=== PATIENT | male | born 1960 | race Caucasian/White ===

== ENCOUNTER → 2021-03-18 | Day surgery (SDC) | payer MEDICARE, MEDICAID ==
[~2021-03-18] MED LIST: Lactated Ringers 1,000 ML IV SCH; Propofol 200 MG/20 ML SDV ONE
[2021-03-18 10:41] VITALS: BP 129/86; PULSE 65
--- NOTE | 2021-03-18 12:46 | OR ---
DATE OF OPERATION: 03/18/2021 PREOPERATIVE DIAGNOSIS: HISTORY OF POLYPS. POSTOPERATIVE DIAGNOSIS: HISTORY OF POLYPS. SURGEON: Jorge Martinez MD PROCEDURE: FULL-LENGTH COLONOSCOPY WITH SNARE POLYPECTOMY X3. ANESTHESIA: MAC. COMPLICATIONS: None. SPECIMEN: 1. Two tubular adenomas less than 0.5 cm. 2. Elongated villous lesion approximately 5 mm. FINDINGS: 1. Full-length colonoscopy. 2. Mild sigmoid diverticulosis. 3. Tubular adenomas x2. 4. Sessile polyp 0.5 cm or less. RECOMMENDATIONS: Followup colonoscopy in 5 years. INDICATIONS: Mr. Leigh is a 4th [facility] patient who is in for a routine physical. It has been 5 years since his last colonoscopy, where he had a polyp removed. He is due for a routine followup. DESCRIPTION OF PROCEDURE: The patient is prepped and draped, placed in the left lateral decubitus position. A lubricated Olympus colonoscope was inserted and with ease advanced to the cecum. Direct visualization of the ileocecal valve and appendiceal orifice was very difficult as the patient had significant amount of stool in the right colon. Most of this was unable to be suctioned due to the solidity of it. He had liquid stool throughout the colon as well. Visualization was adequate in most places, but certainly smaller lesions could be missed at some of these areas. Upon withdrawal, the cecum and ascending colon appeared grossly benign. Just past the hepatic flexure in the proximal transverse colon, the patient had an elongated sessile polyp approximately 5 mm, removed with snare and suctioned into polyp trap #1. At the splenic flexure the patient had a second polyp, tubular adenoma in usual size about 4 mm, removed with a snare and suctioned into polyp trap #2. The rest of the transverse and descending areas were benign. The patient does have scattered diverticular disease throughout most of the sigmoid, mild in severity. The last polyp in the proximal sigmoid colon was also tubular in nature, removed with a snare and suctioned into polyp trap #3 without problem. The rectal vault appeared benign. Retroflexion showed no obvious perianal lesions, although a lot of stool was present. Air was suctioned. Scope removed without complication. STEPHANY/ALEXANDRO /[id number]
== END ==
LOC: CC.SDS 08:26
PROVIDERS: ATTEND Family Medicine
DX: Z12.11 Encounter for screening for malignant neoplasm of colon (principal); D12.3 Benign neoplasm of transverse colon; D12.5 Benign neoplasm of sigmoid colon; K57.30 Diverticulosis of large intestine without perforation or abscess without bleeding; K21.9 Gastro-esophageal reflux disease without esophagitis; E78.00 Pure hypercholesterolemia, unspecified; I10 Essential (primary) hypertension; E03.9 Hypothyroidism, unspecified; F31.9 Bipolar disorder, unspecified; F95.2 Tourette's disorder; R97.20 Elevated prostate specific antigen [PSA]; Z79.899 Other long term (current) drug therapy; Z79.890 Hormone replacement therapy
CPT/HCPCS: 45385; J2704; J7120; 00812

== ENCOUNTER 2023-01-11 10:21 | Inpatient (IN) | payer MEDICARE, MEDICAID ==
[2023-01-11] MEDS ORDERED: Sodium Chloride 0.9% 1,000 ML IV ONE (10:42)
[2023-01-11 11:21] LABS: BASOPHILS ABSOLUTE AUTO 0.02 10^3/uL (0.00-0.50); BASOPHILS PERCENT AUTO 0.1 % (0-1); EOSINOPHILS ABSOLUTE AUTO 0.01 10^3/uL (0.00-1.50); HEMATOCRIT 41.9 % (42.0-52.0); HEMOGLOBIN 14.6 g/dL (14.0-18.0); IMMATURE GRAN PERCENT AUTO 0.5 % (0.0-4.9); LYMPHOCYTES ABSOLUTE AUTO 1.45 10^3/uL (0.60-5.00); LYMPHOCYTES PERCENT AUTO 6.8 % (24-44); MEAN CORPUSCULAR HEMOGLOBIN 30.3 pg (27.0-32.0); MEAN CORPUSCULAR HGB CONC 34.8 g/dL (32.0-36.0); MEAN CORPUSCULAR VOLUME 86.9 fL (83.0-97.0); MONOCYTES ABSOLUTE AUTO 3.04 10^3/uL (0.00-1.50); MONOCYTES PERCENT AUTO 14.2 % (0-10); NEUTROPHILS ABSOLUTE AUTO 16.78 x10^3/uL (1.80-8.00); NEUTROPHILS PERCENT AUTO 78.4 % (41-71); PLATELET COUNT,PLT 197 10^3/uL (150-400); RED BLOOD CELL COUNT 4.82 x10^6/uL (4.50-6.00)
[2023-01-11 11:24] LABS: WHITE BLOOD CELL COUNT,WBC 21.4 10^3/uL (4.0-11.0)
[2023-01-11 11:25] LABS: APPEARANCE,URINE CLEAR (CLEAR); BILIRUBIN,URINE NEGATIVE (NEGATIVE); COLOR,URINE YELLOW (YELLOW); GLUCOSE,URINE NEGATIVE (NEGATIVE); KETONES,URINE NEGATIVE (NEGATIVE); LEUKOCYTE ESTERASE,URINE SMALL (NEGATIVE); NITRITE,URINE NEGATIVE (NEGATIVE); OCCULT BLOOD,URINE MODERATE (NEGATIVE); PH,URINE 5.5 (4.5-8.0); PROTEIN,URINE NEGATIVE (NEGATIVE); UROBILINOGEN,URINE 0.2 EU/dL (0.2-1.0)
[2023-01-11 11:34] LABS: ALBUMIN 3.3 g/dL (3.4-5.0); BILIRUBIN TOTAL 0.8 mg/dL (0.0-1.0); C-REACTIVE PROTEIN 8.43 mg/dL (<=0.30); CALCIUM 9.9 mg/dL (8.4-10.1); CREATININE 1.4 mg/dL (0.7-1.3); EST CRCL DRUG DOSING (CG) 59.01 mL/min; POTASSIUM,K 4.5 mEq/L (3.5-5.0)
[2023-01-11 11:36] LABS: LACTIC ACID 1.1 mmol/L (0.4-2.0)
[2023-01-11] MEDS ORDERED: cefTRIAXone 2 GM Vial IVPUSH ONE (11:41)
[2023-01-11 11:44] LABS: BACTERIA,URINE OCCASIONAL /HPF (NOT SEEN); EPITHELIAL CELLS,URINE NOT SEEN /HPF (NOT SEEN); MUCUS,URINE NOT SEEN /HPF (NOT SEEN)
[2023-01-11 12:03] LABS: CORONAVIRUS COVID-19 NAA NEGATIVE (NEGATIVE); INFLUENZA A NAA NEGATIVE (NEGATIVE); INFLUENZA B NAA NEGATIVE (NEGATIVE); RESPIRATORY SYNCYTIAL VIR NAA NEGATIVE (NEGATIVE)
[2023-01-11] MEDS ORDERED: Ondansetron 4 MG/2 ML SDV IV PRN (12:55)
[2023-01-11] MEDS ORDERED: Ondansetron 4 MG Tab.DIS PO PRN (12:55)
[2023-01-11] MEDS: Sodium Chloride 0.9% 1,000 ML IV SCH ×3 (13:11→23:10)
[2023-01-11] MEDS: Acetaminophen 325 MG Tab PO PRN ×2 (13:28→17:30)
[2023-01-11 14:20] LABS: APPEARANCE,URINE SLIGHTLY CLOUDY (CLEAR); BILIRUBIN,URINE NEGATIVE (NEGATIVE); COLOR,URINE YELLOW (YELLOW); GLUCOSE,URINE NEGATIVE (NEGATIVE); KETONES,URINE NEGATIVE (NEGATIVE); LEUKOCYTE ESTERASE,URINE SMALL (NEGATIVE); NITRITE,URINE POSITIVE (NEGATIVE); OCCULT BLOOD,URINE SMALL (NEGATIVE); PROTEIN,URINE TRACE mg/dL (NEGATIVE); UROBILINOGEN,URINE 0.2 EU/dL (0.2-1.0)
[2023-01-11 14:43] LABS: BACTERIA,URINE FEW /HPF (NOT SEEN); EPITHELIAL CELLS,URINE OCCASIONAL /HPF (NOT SEEN); MUCUS,URINE OCCASIONAL /HPF (NOT SEEN); WBC,URINE 40-50 /HPF (0-5)
[2023-01-11] MEDS: LORazepam 0.5 MG Tab PO SCH ×2 (15:11→19:58)
[2023-01-11] MEDS: Ibuprofen 200 MG Tab PO PRN ×2 (15:20→23:27)
[2023-01-11] MEDS: hydrOXYzine HCl 25 MG Tab PO SCH (17:03)
[2023-01-11] MEDS: Levothyroxine 100 MCG Tab PO SCH (17:03)
[2023-01-11] MEDS: Pantoprazole 40 MG Tab.CR PO SCH (17:03)
[2023-01-11] MEDS: Propranolol 80 MG Cap.ER PO SCH (17:03)
[2023-01-11] MEDS: Enoxaparin 40 MG/0.4 ML Syringe SUBCUT SCH (19:57)
[2023-01-11] MEDS: Fluticasone NASAL Spray 16 GM Bottle NASBOTH SCH (19:57)
[2023-01-11] MEDS: Montelukast 10 MG Tab PO SCH (19:57)
[2023-01-11] MEDS: traZODone 50 MG Tab PO SCH (19:58)
[2023-01-11] MEDS: Divalproex Sodium Delayed-Release 250 MG Tab.CR PO SCH (19:58)
[2023-01-11] MEDS: risperiDONE 1 MG Tab PO SCH (19:58)
[2023-01-11] MEDS: OLANZAPINE 20 MG PO SCH (20:03)
[2023-01-12 07:30] LABS: BASOPHILS ABSOLUTE AUTO 0.04 10^3/uL (0.00-0.50); BASOPHILS PERCENT AUTO 0.2 % (0-1); EOSINOPHILS ABSOLUTE AUTO 0.03 10^3/uL (0.00-1.50); EOSINOPHILS PERCENT AUTO 0.1 % (0-6); HEMATOCRIT 31.8 % (42.0-52.0); HEMOGLOBIN 10.9 g/dL (14.0-18.0); IMMATURE GRAN PERCENT AUTO 2.7 % (0.0-4.9); LYMPHOCYTES ABSOLUTE AUTO 1.18 10^3/uL (0.60-5.00); LYMPHOCYTES PERCENT AUTO 5.3 % (24-44); MEAN CORPUSCULAR HEMOGLOBIN 30.4 pg (27.0-32.0); MEAN CORPUSCULAR HGB CONC 34.3 g/dL (32.0-36.0); MEAN CORPUSCULAR VOLUME 88.8 fL (83.0-97.0); MONOCYTES ABSOLUTE AUTO 2.48 10^3/uL (0.00-1.50); MONOCYTES PERCENT AUTO 11.2 % (0-10); NEUTROPHILS PERCENT AUTO 80.5 % (41-71); PLATELET COUNT,PLT 140 10^3/uL (150-400); RED BLOOD CELL COUNT 3.58 x10^6/uL (4.50-6.00)
[2023-01-12] MEDS: risperiDONE 1 MG Tab PO SCH ×2 (07:41→19:44)
[2023-01-12] MEDS: Magnesium Chloride 64 MG Tab.ER PO SCH (07:41)
[2023-01-12] MEDS: Divalproex Sodium Delayed-Release 250 MG Tab.CR PO SCH ×2 (07:41→19:43)
[2023-01-12] MEDS: LORazepam 0.5 MG Tab PO SCH ×3 (07:42→19:42)
[2023-01-12] MEDS: Loratadine 10 MG Tab PO SCH (07:42)
[2023-01-12] MEDS: Multivitamin Tab PO SCH (07:43)
[2023-01-12 07:44] LABS: WHITE BLOOD CELL COUNT,WBC 22.2 10^3/uL (4.0-11.0)
[2023-01-12] MEDS: Furosemide 40 MG Tab PO SCH (07:44)
[2023-01-12] MEDS: Propranolol 80 MG Cap.ER PO SCH ×2 (07:46→18:22)
[2023-01-12] MEDS: Lisinopril 10 MG Tab PO SCH (07:46)
[2023-01-12] MEDS: Polyethylene Glycol 3350 Powder 17 GM Packet PO SCH (07:46)
[2023-01-12] MEDS: hydrOXYzine HCl 25 MG Tab PO SCH ×2 (07:48→18:24)
[2023-01-12 08:11] LABS: ALBUMIN 2.1 g/dL (3.4-5.0); BILIRUBIN TOTAL 0.4 mg/dL (0.0-1.0); C-REACTIVE PROTEIN 18.74 mg/dL (<=0.30); CALCIUM 7.9 mg/dL (8.4-10.1); EST CRCL DRUG DOSING (CG) 27.54 mL/min; POTASSIUM,K 4.7 mEq/L (3.5-5.0); PROTEIN TOTAL,TP 5.7 g/dL (6.4-8.2)
[2023-01-12] MEDS: Sodium Chloride 0.9% 1,000 ML IV SCH ×2 (09:02→21:05)
[2023-01-12] MEDS ORDERED: cefTRIAXone 1 GM Vial IVPUSH SCH (13:15)
[2023-01-12] MEDS: cefTRIAXone 1 GM Vial IVPUSH SCH (13:15)
[2023-01-12] MEDS: Pantoprazole 40 MG Tab.CR PO SCH (18:22)
[2023-01-12] MEDS: Levothyroxine 100 MCG Tab PO SCH (18:22)
[2023-01-12] MEDS: Enoxaparin 40 MG/0.4 ML Syringe SUBCUT SCH (19:44)
[2023-01-12] MEDS: Montelukast 10 MG Tab PO SCH (19:45)
[2023-01-12] MEDS: traZODone 50 MG Tab PO SCH (19:45)
[2023-01-12] MEDS: OLANZAPINE 20 MG PO SCH (19:47)
[2023-01-12] MEDS: Fluticasone NASAL Spray 16 GM Bottle NASBOTH SCH (19:48)
[2023-01-13] MEDS: Acetaminophen 325 MG Tab PO PRN ×3 (03:40→19:46)
[2023-01-13 07:58] LABS: BASOPHILS ABSOLUTE AUTO 0.02 10^3/uL (0.00-0.50); BASOPHILS PERCENT AUTO 0.1 % (0-1); EOSINOPHILS ABSOLUTE AUTO 0.26 10^3/uL (0.00-1.50); EOSINOPHILS PERCENT AUTO 1.5 % (0-6); HEMATOCRIT 34.2 % (42.0-52.0); HEMOGLOBIN 11.7 g/dL (14.0-18.0); IMMATURE GRAN PERCENT AUTO 1.1 % (0.0-4.9); LYMPHOCYTES ABSOLUTE AUTO 1.41 10^3/uL (0.60-5.00); LYMPHOCYTES PERCENT AUTO 8.1 % (24-44); MEAN CORPUSCULAR HEMOGLOBIN 29.8 pg (27.0-32.0); MEAN CORPUSCULAR HGB CONC 34.2 g/dL (32.0-36.0); MEAN CORPUSCULAR VOLUME 87.2 fL (83.0-97.0); MONOCYTES ABSOLUTE AUTO 1.19 10^3/uL (0.00-1.50); MONOCYTES PERCENT AUTO 6.8 % (0-10); NEUTROPHILS PERCENT AUTO 82.4 % (41-71); PLATELET COUNT,PLT 148 10^3/uL (150-400); RED BLOOD CELL COUNT 3.92 x10^6/uL (4.50-6.00); WHITE BLOOD CELL COUNT,WBC 17.5 10^3/uL (4.0-11.0)
[2023-01-13] MEDS: risperiDONE 1 MG Tab PO SCH ×2 (08:00→19:31)
[2023-01-13] MEDS: Furosemide 40 MG Tab PO SCH (08:00)
[2023-01-13] MEDS: Loratadine 10 MG Tab PO SCH (08:01)
[2023-01-13] MEDS: Multivitamin Tab PO SCH (08:01)
[2023-01-13] MEDS: Magnesium Chloride 64 MG Tab.ER PO SCH (08:01)
[2023-01-13] MEDS: Lisinopril 10 MG Tab PO SCH (08:01)
[2023-01-13] MEDS: LORazepam 0.5 MG Tab PO SCH ×3 (08:02→19:29)
[2023-01-13] MEDS: Polyethylene Glycol 3350 Powder 17 GM Packet PO SCH (08:03)
[2023-01-13] MEDS: Divalproex Sodium Delayed-Release 250 MG Tab.CR PO SCH ×2 (08:04→19:30)
[2023-01-13] MEDS: hydrOXYzine HCl 25 MG Tab PO SCH ×2 (08:08→17:04)
[2023-01-13] MEDS: Propranolol 80 MG Cap.ER PO SCH ×2 (08:09→17:05)
[2023-01-13 08:15] LABS: ALBUMIN 2.1 g/dL (3.4-5.0); BILIRUBIN TOTAL 0.4 mg/dL (0.0-1.0); C-REACTIVE PROTEIN 18.87 mg/dL (<=0.30); CALCIUM 8.7 mg/dL (8.4-10.1); CREATININE 1.2 mg/dL (0.7-1.3); EST CRCL DRUG DOSING (CG) 68.85 mL/min; PROTEIN TOTAL,TP 6.3 g/dL (6.4-8.2)
[2023-01-13 08:20] LABS: POTASSIUM,K 4.3 mEq/L (3.5-5.0)
[2023-01-13] MEDS: cefTRIAXone 1 GM Vial IVPUSH SCH (11:49)
[2023-01-13] MEDS: Levothyroxine 100 MCG Tab PO SCH (17:04)
[2023-01-13] MEDS: Pantoprazole 40 MG Tab.CR PO SCH (17:04)
[2023-01-13] MEDS: Enoxaparin 40 MG/0.4 ML Syringe SUBCUT SCH (19:30)
[2023-01-13] MEDS: Montelukast 10 MG Tab PO SCH (19:32)
[2023-01-13] MEDS: traZODone 50 MG Tab PO SCH (19:32)
[2023-01-13] MEDS: Fluticasone NASAL Spray 16 GM Bottle NASBOTH SCH (19:33)
[2023-01-13] MEDS: OLANZAPINE 20 MG PO SCH (19:33)
[2023-01-14 07:53] LABS: BASOPHILS ABSOLUTE AUTO 0.02 10^3/uL (0.00-0.50); BASOPHILS PERCENT AUTO 0.1 % (0-1); EOSINOPHILS ABSOLUTE AUTO 0.35 10^3/uL (0.00-1.50); EOSINOPHILS PERCENT AUTO 2.5 % (0-6); HEMATOCRIT 34.8 % (42.0-52.0); HEMOGLOBIN 11.8 g/dL (14.0-18.0); IMMATURE GRAN ABSOLUTE AUTO 0.28 10^3/uL (0.00-0.49); LYMPHOCYTES ABSOLUTE AUTO 1.63 10^3/uL (0.60-5.00); LYMPHOCYTES PERCENT AUTO 11.8 % (24-44); MEAN CORPUSCULAR HEMOGLOBIN 29.7 pg (27.0-32.0); MEAN CORPUSCULAR HGB CONC 33.9 g/dL (32.0-36.0); MEAN CORPUSCULAR VOLUME 87.7 fL (83.0-97.0); MONOCYTES ABSOLUTE AUTO 0.99 10^3/uL (0.00-1.50); MONOCYTES PERCENT AUTO 7.2 % (0-10); NEUTROPHILS ABSOLUTE AUTO 10.49 x10^3/uL (1.80-8.00); NEUTROPHILS PERCENT AUTO 76.4 % (41-71); PLATELET COUNT,PLT 134 10^3/uL (150-400); RED BLOOD CELL COUNT 3.97 x10^6/uL (4.50-6.00); WHITE BLOOD CELL COUNT,WBC 13.8 10^3/uL (4.0-11.0)
[2023-01-14] MEDS: risperiDONE 1 MG Tab PO SCH (08:04)
[2023-01-14] MEDS: Multivitamin Tab PO SCH (08:04)
[2023-01-14] MEDS: Divalproex Sodium Delayed-Release 250 MG Tab.CR PO SCH (08:05)
[2023-01-14] MEDS: Lisinopril 10 MG Tab PO SCH (08:05)
[2023-01-14] MEDS: Loratadine 10 MG Tab PO SCH (08:05)
[2023-01-14] MEDS: LORazepam 0.5 MG Tab PO SCH (08:05)
[2023-01-14] MEDS: Magnesium Chloride 64 MG Tab.ER PO SCH (08:06)
[2023-01-14] MEDS: Furosemide 40 MG Tab PO SCH (08:06)
[2023-01-14] MEDS: Polyethylene Glycol 3350 Powder 17 GM Packet PO SCH (08:07)
[2023-01-14 08:08] LABS: ALBUMIN 2.1 g/dL (3.4-5.0); BILIRUBIN TOTAL 0.3 mg/dL (0.0-1.0); C-REACTIVE PROTEIN 8.8 mg/dL (<=0.30); CALCIUM 9.1 mg/dL (8.4-10.1); CREATININE 1.1 mg/dL (0.7-1.3); EST CRCL DRUG DOSING (CG) 75.11 mL/min; POTASSIUM,K 4.3 mEq/L (3.5-5.0); PROTEIN TOTAL,TP 6.4 g/dL (6.4-8.2)
[2023-01-14] MEDS: hydrOXYzine HCl 25 MG Tab PO SCH (08:08)
[2023-01-14] MEDS: Propranolol 80 MG Cap.ER PO SCH (08:08)
[2023-01-14] MEDS ORDERED: Take Home: Sulfamethoxazole/Trimethoprim 800-160 MG Tab, 6 Tab Pack PO ONE (10:14)
[2023-01-14 10:33] VITALS: BP 153/98; PULSE 86
== END 2023-01-14 10:50 | disposition home or self-care (01) | DRG 690 ==
LOC: CC.ED 10:21 → UNDOADMIN 12:33 → CC.MS 12:33
PROVIDERS: ADMIT Nurse Practitioner Family; ATTEND Nurse Practitioner Family
DX: N39.0 Urinary tract infection, site not specified (principal); N17.9 Acute kidney failure, unspecified; I95.9 Hypotension, unspecified; B96.89 Other specified bacterial agents as the cause of diseases classified elsewhere; E86.0 Dehydration; Z20.822 Contact with and (suspected) exposure to COVID-19; F79 Unspecified intellectual disabilities; Z79.899 Other long term (current) drug therapy
CPT/HCPCS: 0241U; 36415; 71046; 80053; 81001; 83605; 85025; 86140; 87040; 87086; 87088; 87186; 96361; 96374; 99223; 99232; 99233; 99238; 99285-25; A9270-GY; J0696; J1650; J7030

== ENCOUNTER 2024-09-15 09:32 | Inpatient (IN) | payer MEDICARE, MEDICAID ==
[2024-09-15 09:56] LABS: BASOPHILS ABSOLUTE AUTO 0.02 10^3/uL (0.00-0.50); BASOPHILS PERCENT AUTO 0.1 % (0-1); EOSINOPHILS ABSOLUTE AUTO 0.03 10^3/uL (0.00-1.50); EOSINOPHILS PERCENT AUTO 0.2 % (0-6); HEMATOCRIT 39.2 % (42.0-52.0); IMMATURE GRAN ABSOLUTE AUTO 0.07 10^3/uL (0.00-0.49); IMMATURE GRAN PERCENT AUTO 0.4 % (0.0-4.9); LYMPHOCYTES ABSOLUTE AUTO 2.12 10^3/uL (0.60-5.00); LYMPHOCYTES PERCENT AUTO 12.3 % (24-44); MEAN CORPUSCULAR HEMOGLOBIN 30.6 pg (27.0-32.0); MEAN CORPUSCULAR HGB CONC 33.2 g/dL (32.0-36.0); MEAN CORPUSCULAR VOLUME 92.2 fL (83.0-97.0); MONOCYTES ABSOLUTE AUTO 2.85 10^3/uL (0.00-1.50); MONOCYTES PERCENT AUTO 16.6 % (0-10); NEUTROPHILS PERCENT AUTO 70.4 % (41-71); PLATELET COUNT,PLT 151 10^3/uL (150-400); RED BLOOD CELL COUNT 4.25 x10^6/uL (4.50-6.00); WHITE BLOOD CELL COUNT,WBC 17.2 10^3/uL (4.0-11.0)
[2024-09-15 10:07] LABS: APPEARANCE,URINE CLEAR (CLEAR); BILIRUBIN,URINE NEGATIVE (NEGATIVE); COLOR,URINE YELLOW (YELLOW); GLUCOSE,URINE NEGATIVE (NEGATIVE); KETONES,URINE NEGATIVE (NEGATIVE); LEUKOCYTE ESTERASE,URINE TRACE (NEGATIVE); NITRITE,URINE NEGATIVE (NEGATIVE); OCCULT BLOOD,URINE TRACE-INTACT (NEGATIVE); PROTEIN,URINE NEGATIVE (NEGATIVE)
[2024-09-15 10:12] LABS: ALBUMIN 2.8 g/dL (3.4-5.0); BILIRUBIN TOTAL 0.9 mg/dL (0.0-1.0); C-REACTIVE PROTEIN 7.31 mg/dL (<=0.50); CREATININE 1.3 mg/dL (0.7-1.3); EST CRCL DRUG DOSING (CG) 62.75 mL/min; POTASSIUM,K 4.3 mEq/L (3.5-5.0); PROTEIN TOTAL,TP 7.3 g/dL (6.4-8.2)
[2024-09-15 10:19] LABS: BACTERIA,URINE NOT SEEN /HPF (NOT SEEN); EPITHELIAL CELLS,URINE NOT SEEN /HPF (NOT SEEN); MUCUS,URINE NOT SEEN /HPF (NOT SEEN); RBC,URINE 0-5 /HPF (0-5); WBC,URINE 0-5 /HPF (0-5)
[2024-09-15] MEDS ORDERED: Ondansetron 4 MG Tab.DIS PO PRN (11:40)
[2024-09-15] MEDS ORDERED: Ondansetron 4 MG/2 ML SDV IV PRN (11:40)
[2024-09-15] MEDS ORDERED: Sodium Chloride 0.9% 10 ML Syringe FLUSH PRN (11:40)
[2024-09-15] MEDS ORDERED: Albuterol/Ipratropium 3.0-0.5 MG/3 ML Neb Soln NEB PRN (11:40)
[2024-09-15] MEDS ORDERED: Acetaminophen 325 MG Tab PO PRN (11:40)
[2024-09-15] MEDS: Azithromycin 250 MG Tab PO SCH (11:56)
[2024-09-15] MEDS: cefTRIAXone 1 GM Vial IVPUSH SCH (11:56)
[2024-09-15] MEDS: methylPREDNISolone Sodium Succinate 40 MG/1 ML SDV IVPUSH ONE (11:56)
[2024-09-15] MEDS: LORazepam 0.5 MG Tab PO SCH (14:02)
[2024-09-15] MEDS: Levothyroxine 100 MCG Tab PO SCH (17:18)
[2024-09-15] MEDS: hydrOXYzine HCl 25 MG Tab PO SCH (17:18)
[2024-09-15] MEDS: Divalproex Sodium Delayed-Release 250 MG Tab.CR PO SCH (19:46)
[2024-09-15] MEDS: risperiDONE 1 MG Tab PO SCH (19:47)
[2024-09-15] MEDS: traZODone 50 MG Tab PO SCH (19:47)
[2024-09-15] MEDS: Montelukast 10 MG Tab PO SCH (19:47)
[2024-09-15] MEDS: Propranolol 80 MG Cap.ER PO SCH (19:47)
[2024-09-15] MEDS: Enoxaparin 40 MG/0.4 ML Syringe SUBCUT SCH (19:47)
[2024-09-15] MEDS: methylPREDNISolone Sodium Succinate 40 MG/1 ML SDV IVPUSH SCH (19:47)
[2024-09-15] MEDS: Pantoprazole 40 MG Tab.CR PO SCH (19:47)
[2024-09-15] MEDS: OLANZAPINE 20 MG PO SCH (20:04)
[2024-09-16] MEDS: Magnesium Oxide 400 MG Tab PO SCH (07:41)
[2024-09-16] MEDS: hydrOXYzine HCl 25 MG Tab PO SCH (07:42)
[2024-09-16] MEDS: Furosemide 40 MG Tab PO SCH (07:42)
[2024-09-16] MEDS: Multivitamin Tab PO SCH (07:44)
[2024-09-16] MEDS: Polyethylene Glycol 3350 Powder 17 GM Packet PO SCH (07:45)
[2024-09-16 08:06] LABS: BASOPHILS ABSOLUTE AUTO 0.02 10^3/uL (0.00-0.50); BASOPHILS PERCENT AUTO 0.1 % (0-1); HEMATOCRIT 37.6 % (42.0-52.0); HEMOGLOBIN 12.5 g/dL (14.0-18.0); IMMATURE GRAN ABSOLUTE AUTO 0.09 10^3/uL (0.00-0.49); IMMATURE GRAN PERCENT AUTO 0.5 % (0.0-4.9); LYMPHOCYTES ABSOLUTE AUTO 1.49 10^3/uL (0.60-5.00); LYMPHOCYTES PERCENT AUTO 8.3 % (24-44); MEAN CORPUSCULAR HEMOGLOBIN 30.5 pg (27.0-32.0); MEAN CORPUSCULAR HGB CONC 33.2 g/dL (32.0-36.0); MEAN CORPUSCULAR VOLUME 91.7 fL (83.0-97.0); MONOCYTES ABSOLUTE AUTO 1.08 10^3/uL (0.00-1.50); NEUTROPHILS ABSOLUTE AUTO 15.35 x10^3/uL (1.80-8.00); NEUTROPHILS PERCENT AUTO 85.1 % (41-71); PLATELET COUNT,PLT 174 10^3/uL (150-400)
[2024-09-16 08:24] LABS: ALBUMIN 2.3 g/dL (3.4-5.0); BILIRUBIN TOTAL 0.4 mg/dL (0.0-1.0); C-REACTIVE PROTEIN 7.53 mg/dL (<=0.50); CALCIUM 9.1 mg/dL (8.4-10.1); CREATININE 1.1 mg/dL (0.7-1.3); EST CRCL DRUG DOSING (CG) 74.16 mL/min; POTASSIUM,K 4.5 mEq/L (3.5-5.0); PROTEIN TOTAL,TP 6.9 g/dL (6.4-8.2)
[2024-09-16] MEDS: Lisinopril 10 MG Tab PO SCH (09:09)
[2024-09-17 07:38] LABS: ALBUMIN 2.4 g/dL (3.4-5.0); BILIRUBIN TOTAL 0.3 mg/dL (0.0-1.0); C-REACTIVE PROTEIN 3.47 mg/dL (<=0.50); CALCIUM 9.6 mg/dL (8.4-10.1); CREATININE 1.2 mg/dL (0.7-1.3); EST CRCL DRUG DOSING (CG) 67.98 mL/min; PROTEIN TOTAL,TP 7.1 g/dL (6.4-8.2)
[2024-09-17 07:40] LABS: BASOPHILS ABSOLUTE AUTO 0.03 10^3/uL (0.00-0.50); BASOPHILS PERCENT AUTO 0.2 % (0-1); HEMATOCRIT 39.3 % (42.0-52.0); IMMATURE GRAN ABSOLUTE AUTO 0.14 10^3/uL (0.00-0.49); IMMATURE GRAN PERCENT AUTO 0.7 % (0.0-4.9); LYMPHOCYTES ABSOLUTE AUTO 1.93 10^3/uL (0.60-5.00); LYMPHOCYTES PERCENT AUTO 9.9 % (24-44); MEAN CORPUSCULAR HEMOGLOBIN 30.4 pg (27.0-32.0); MEAN CORPUSCULAR HGB CONC 33.1 g/dL (32.0-36.0); MONOCYTES ABSOLUTE AUTO 1.06 10^3/uL (0.00-1.50); MONOCYTES PERCENT AUTO 5.4 % (0-10); NEUTROPHILS ABSOLUTE AUTO 16.33 x10^3/uL (1.80-8.00); NEUTROPHILS PERCENT AUTO 83.8 % (41-71); PLATELET COUNT,PLT 222 10^3/uL (150-400); RED BLOOD CELL COUNT 4.27 x10^6/uL (4.50-6.00); WHITE BLOOD CELL COUNT,WBC 19.5 10^3/uL (4.0-11.0)
[2024-09-17] MEDS: cefTRIAXone 1 GM Vial IVPUSH SCH (11:02)
[2024-09-17] MEDS: Azithromycin 250 MG Tab PO ONE (11:02)
[2024-09-17 11:20] VITALS: BP 117/78; PULSE 73
== END 2024-09-17 11:30 | disposition home or self-care (01) | DRG 195 ==
LOC: CC.ED 09:32 → CC.MS 10:38
PROVIDERS: ADMIT Physician Assistant Medical; ATTEND Physician Assistant Medical
DX: J18.9 Pneumonia, unspecified organism (principal); J31.0 Chronic rhinitis; I11.0 Hypertensive heart disease with heart failure; I50.9 Heart failure, unspecified; E03.9 Hypothyroidism, unspecified; K21.9 Gastro-esophageal reflux disease without esophagitis; Z86.718 Personal history of other venous thrombosis and embolism; Z79.899 Other long term (current) drug therapy
CPT/HCPCS: 36415; 71045; 80053; 81001; 83880; 85025; 86140; 99223; 99233; 99239; 99285; A9270-GY; J0696; J1650; J2919

== ENCOUNTER 2024-11-24 15:50 | Inpatient (IN) | payer MEDICARE, MEDICAID ==
[2024-11-24] MEDS ORDERED: Albuterol 0.083% 2.5 MG/3 ML Neb Soln NEB PRN (15:53)
[2024-11-24] MEDS ORDERED: Polyethylene Glycol 3350 Powder 17 GM Packet PO PRN (15:53)
[2024-11-24] MEDS ORDERED: Docusate Sodium 100 MG Cap PO PRN (15:53)
[2024-11-24] MEDS: Albuterol/Ipratropium 3.0-0.5 MG/3 ML Neb Soln NEB SCH (16:23)
[2024-11-24] MEDS: cefTRIAXone 1 GM Vial IVPUSH SCH (16:24)
[2024-11-24] MEDS: Doxycycline Monohydrate 100 MG Cap PO ONE (17:38)
[2024-11-24] MEDS: Propranolol 80 MG Cap.ER PO SCH (19:39)
[2024-11-24] MEDS: Montelukast 10 MG Tab PO SCH (19:40)
[2024-11-24] MEDS: Pantoprazole 40 MG Tab.CR PO SCH (19:40)
[2024-11-24] MEDS: traZODone 50 MG Tab PO SCH (19:41)
[2024-11-24] MEDS: Divalproex Sodium 250 MG Tab.ER PO SCH (19:41)
[2024-11-24] MEDS: hydrOXYzine HCl 25 MG Tab PO SCH (19:41)
[2024-11-24] MEDS: LORazepam 0.5 MG Tab PO SCH (19:42)
[2024-11-24] MEDS: risperiDONE 1 MG Tab PO SCH (19:44)
[2024-11-24] MEDS: Fluticasone NASAL Spray 16 GM Bottle NASBOTH SCH (20:20)
[2024-11-25 07:49] LABS: CALCIUM 8.9 mg/dL (8.4-10.1); EST CRCL DRUG DOSING (CG) 81.58 mL/min; MAGNESIUM 1.9 mg/dL (1.8-2.4); POTASSIUM,K 4.1 mEq/L (3.5-5.0)
[2024-11-25 07:58] LABS: BASOPHILS ABSOLUTE AUTO 0.03 10^3/uL (0.00-0.50); BASOPHILS PERCENT AUTO 0.3 % (0-1); EOSINOPHILS ABSOLUTE AUTO 0.19 10^3/uL (0.00-1.50); EOSINOPHILS PERCENT AUTO 1.8 % (0-6); HEMOGLOBIN 12.5 g/dL (14.0-18.0); IMMATURE GRAN ABSOLUTE AUTO 0.02 10^3/uL (0.00-0.49); IMMATURE GRAN PERCENT AUTO 0.2 % (0.0-4.9); LYMPHOCYTES ABSOLUTE AUTO 1.73 10^3/uL (0.60-5.00); MEAN CORPUSCULAR HEMOGLOBIN 30.6 pg (27.0-32.0); MEAN CORPUSCULAR HGB CONC 32.9 g/dL (32.0-36.0); MEAN CORPUSCULAR VOLUME 93.1 fL (83.0-97.0); MONOCYTES ABSOLUTE AUTO 1.14 10^3/uL (0.00-1.50); MONOCYTES PERCENT AUTO 10.5 % (0-10); NEUTROPHILS ABSOLUTE AUTO 7.72 x10^3/uL (1.80-8.00); NEUTROPHILS PERCENT AUTO 71.2 % (41-71); PLATELET COUNT,PLT 164 10^3/uL (150-400); RED BLOOD CELL COUNT 4.08 x10^6/uL (4.50-6.00); WHITE BLOOD CELL COUNT,WBC 10.8 10^3/uL (4.0-11.0)
[2024-11-25] MEDS: Polyethylene Glycol 3350 Powder 238 GM Bot PO SCH (08:14)
[2024-11-25] MEDS: Doxycycline Monohydrate 100 MG Cap PO SCH (08:28)
[2024-11-25] MEDS: Furosemide 20 MG Tab PO SCH (08:28)
[2024-11-25] MEDS: Lisinopril 10 MG Tab PO SCH (08:28)
[2024-11-25] MEDS: Lactobacillus Rhamnosus GG (Probiotic) Cap PO SCH (08:29)
[2024-11-25] MEDS: Acetaminophen 325 MG Tab PO PRN (09:56)
[2024-11-25] MEDS: methylPREDNISolone Sodium Succinate 40 MG/1 ML SDV IVPUSH ONE (13:12)
[2024-11-25] MEDS: Levothyroxine 100 MCG Tab PO SCH (16:36)
[2024-11-25] MEDS: OLANZAPINE 20 MG PO SCH (19:33)
[2024-11-26 07:35] LABS: BASOPHILS ABSOLUTE AUTO 0.03 10^3/uL (0.00-0.50); BASOPHILS PERCENT AUTO 0.2 % (0-1); HEMATOCRIT 36.7 % (42.0-52.0); HEMOGLOBIN 12.3 g/dL (14.0-18.0); IMMATURE GRAN ABSOLUTE AUTO 0.06 10^3/uL (0.00-0.49); IMMATURE GRAN PERCENT AUTO 0.5 % (0.0-4.9); LYMPHOCYTES PERCENT AUTO 15.3 % (24-44); MEAN CORPUSCULAR HEMOGLOBIN 30.8 pg (27.0-32.0); MEAN CORPUSCULAR HGB CONC 33.5 g/dL (32.0-36.0); MEAN CORPUSCULAR VOLUME 91.8 fL (83.0-97.0); MONOCYTES ABSOLUTE AUTO 0.98 10^3/uL (0.00-1.50); MONOCYTES PERCENT AUTO 7.9 % (0-10); NEUTROPHILS ABSOLUTE AUTO 9.42 x10^3/uL (1.80-8.00); NEUTROPHILS PERCENT AUTO 76.1 % (41-71); PLATELET COUNT,PLT 167 10^3/uL (150-400); WHITE BLOOD CELL COUNT,WBC 12.4 10^3/uL (4.0-11.0)
[2024-11-26 07:41] LABS: EST CRCL DRUG DOSING (CG) 81.58 mL/min; MAGNESIUM 1.9 mg/dL (1.8-2.4)
[2024-11-26] MEDS: methylPREDNISolone Sodium Succinate 40 MG/1 ML SDV IVPUSH SCH (07:41)
[2024-11-26] MEDS: Magnesium Oxide 400 MG Tab PO SCH (11:41)
[2024-11-26] MEDS: cefTRIAXone 1 GM Vial IVPUSH ONE (11:41)
[2024-11-26 12:13] VITALS: BP 137/86; PULSE 76
== END 2024-11-26 13:18 | disposition home or self-care (01) | DRG 194 ==
LOC: UNDOADMIN 15:50 → CC.MS 15:50
PROVIDERS: ADMIT Nurse Practitioner; ATTEND Nurse Practitioner
DX: J18.9 Pneumonia, unspecified organism (principal); J44.0 Chronic obstructive pulmonary disease with (acute) lower respiratory infection; J44.1 Chronic obstructive pulmonary disease with (acute) exacerbation; I50.9 Heart failure, unspecified; I11.0 Hypertensive heart disease with heart failure; K21.9 Gastro-esophageal reflux disease without esophagitis; F31.9 Bipolar disorder, unspecified; E03.9 Hypothyroidism, unspecified; Z79.899 Other long term (current) drug therapy; Z79.890 Hormone replacement therapy; Z86.718 Personal history of other venous thrombosis and embolism
CPT/HCPCS: 36415; 80048; 83735; 85025; 87426-QW; 94640; 97161-GP; 99223; 99233; 99238; A9270-GY; J0696; J2919

== ENCOUNTER 2025-04-04 17:30 | Inpatient (IN) | payer MEDICARE, MEDICAID ==
[2025-04-04 18:12] LABS: BASOPHILS ABSOLUTE AUTO 0.02 10^3/uL (0.00-0.50); BASOPHILS PERCENT AUTO 0.1 % (0-1); EOSINOPHILS ABSOLUTE AUTO 0.01 10^3/uL (0.00-1.50); EOSINOPHILS PERCENT AUTO 0.1 % (0-6); IMMATURE GRAN ABSOLUTE AUTO 0.05 10^3/uL (0.00-0.49); IMMATURE GRAN PERCENT AUTO 0.3 % (0.0-4.9); LYMPHOCYTES ABSOLUTE AUTO 1.70 10^3/uL (0.60-5.00); LYMPHOCYTES PERCENT AUTO 9.1 % (24-44); MONOCYTES ABSOLUTE AUTO 2.73 10^3/uL (0.00-1.50); MONOCYTES PERCENT AUTO 14.6 % (0-10); NEUTROPHILS ABSOLUTE AUTO 14.19 x10^3/uL (1.80-8.00); NEUTROPHILS PERCENT AUTO 75.8 % (41-71); PLATELET COUNT,PLT 184 10^3/uL (150-400); RED BLOOD CELL COUNT 4.58 x10^6/uL (4.50-6.00); WHITE BLOOD CELL COUNT,WBC 18.7 10^3/uL (4.0-11.0)
[2025-04-04 18:27] LABS: ALANINE AMINOTRANSFERASE,ALT 23.0 U/L (12-78); ASPARTATE AMNIOTRANSFERASE,AST 12.0 U/L (15-37); BILIRUBIN TOTAL 0.6 mg/dL (0.0-1.0); BLOOD UREA NITROGEN,BUN 16.0 mg/dL (7-18); CARBON DIOXIDE,CO2 32.0 mmol/L (21-32); CHLORIDE,CL 98.0 mEq/L (98-106); CREATININE 1.3 mg/dL (0.7-1.3); EST CRCL DRUG DOSING (CG) 61.95 mL/min; GLUCOSE RANDOM 113.0 mg/dL (75-99); POTASSIUM,K 4.3 mEq/L (3.5-5.0); PROTEIN TOTAL,TP 7.2 g/dL (6.4-8.2); SODIUM,NA 137.0 mEq/L (136-145)
[2025-04-04 18:33] LABS: ESTIMATED GFR 62.0 mL/min (>=60)
[2025-04-04 18:42] LABS: CORONAVIRUS COVID-19 NAA NEGATIVE (NEGATIVE); INFLUENZA A NAA NEGATIVE (NEGATIVE); INFLUENZA B NAA NEGATIVE (NEGATIVE)
[2025-04-04] MEDS ORDERED: Sodium Chloride 0.9% 10 ML Syringe FLUSH PRN (19:01)
[2025-04-04] MEDS ORDERED: Ondansetron 4 MG/2 ML SDV IV PRN (19:01)
[2025-04-04] MEDS ORDERED: Ondansetron 4 MG Tab.DIS PO PRN (19:01)
[2025-04-04] MEDS: Fluticasone NASAL Spray 16 GM Bottle NASBOTH SCH (19:26)
[2025-04-04] MEDS: Propranolol 80 MG Cap.ER PO SCH (19:27)
[2025-04-04] MEDS: Divalproex Sodium Delayed-Release 250 MG Tab.CR PO SCH (19:28)
[2025-04-05 07:41] LABS: BASOPHILS ABSOLUTE AUTO 0.02 10^3/uL (0.00-0.50); BASOPHILS PERCENT AUTO 0.2 % (0-1); EOSINOPHILS ABSOLUTE AUTO 0.04 10^3/uL (0.00-1.50); EOSINOPHILS PERCENT AUTO 0.3 % (0-6); IMMATURE GRAN ABSOLUTE AUTO 0.04 10^3/uL (0.00-0.49); IMMATURE GRAN PERCENT AUTO 0.3 % (0.0-4.9); LYMPHOCYTES ABSOLUTE AUTO 2.24 10^3/uL (0.60-5.00); LYMPHOCYTES PERCENT AUTO 18.4 % (24-44); MONOCYTES ABSOLUTE AUTO 1.04 10^3/uL (0.00-1.50); MONOCYTES PERCENT AUTO 8.6 % (0-10); NEUTROPHILS ABSOLUTE AUTO 8.78 x10^3/uL (1.80-8.00); NEUTROPHILS PERCENT AUTO 72.2 % (41-71); PLATELET COUNT,PLT 136 10^3/uL (150-400); RED BLOOD CELL COUNT 3.82 x10^6/uL (4.50-6.00); WHITE BLOOD CELL COUNT,WBC 12.2 10^3/uL (4.0-11.0)
[2025-04-05 07:52] LABS: APPEARANCE,URINE CLEAR (CLEAR); GLUCOSE,URINE NEGATIVE (NEGATIVE); OCCULT BLOOD,URINE NEGATIVE (NEGATIVE)
[2025-04-05 07:58] LABS: ALANINE AMINOTRANSFERASE,ALT 15.0 U/L (12-78); ASPARTATE AMNIOTRANSFERASE,AST 11.0 U/L (15-37); BILIRUBIN TOTAL 0.6 mg/dL (0.0-1.0); BLOOD UREA NITROGEN,BUN 13.0 mg/dL (7-18); CARBON DIOXIDE,CO2 30.0 mmol/L (21-32); CHLORIDE,CL 105.0 mEq/L (98-106); CREATININE 1.1 mg/dL (0.7-1.3); EST CRCL DRUG DOSING (CG) 73.21 mL/min; GLUCOSE RANDOM 128.0 mg/dL (75-99); POTASSIUM,K 3.7 mEq/L (3.5-5.0); PROTEIN TOTAL,TP 5.8 g/dL (6.4-8.2); SODIUM,NA 141.0 mEq/L (136-145)
[2025-04-05] MEDS ORDERED: Non-Formulary Medication 1 Each (Magnesium Chloride [Mag-64] 64 MG Tab.Er) PO SCH (08:00)
[2025-04-05] MEDS ORDERED: Polyethylene Glycol 3350 Powder 238 GM Bot PO SCH (08:00)
[2025-04-05 08:02] LABS: ESTIMATED GFR 75.0 mL/min (>=60)
[2025-04-05] MEDS: Lactobacillus Rhamnosus GG (Probiotic) Cap PO SCH (09:50)
[2025-04-06 07:25] LABS: BASOPHILS ABSOLUTE AUTO 0.03 10^3/uL (0.00-0.50); BASOPHILS PERCENT AUTO 0.4 % (0-1); EOSINOPHILS ABSOLUTE AUTO 0.08 10^3/uL (0.00-1.50); EOSINOPHILS PERCENT AUTO 1.0 % (0-6); IMMATURE GRAN ABSOLUTE AUTO 0.03 10^3/uL (0.00-0.49); IMMATURE GRAN PERCENT AUTO 0.4 % (0.0-4.9); LYMPHOCYTES ABSOLUTE AUTO 1.79 10^3/uL (0.60-5.00); LYMPHOCYTES PERCENT AUTO 21.3 % (24-44); MONOCYTES ABSOLUTE AUTO 0.75 10^3/uL (0.00-1.50); MONOCYTES PERCENT AUTO 8.9 % (0-10); NEUTROPHILS ABSOLUTE AUTO 5.73 x10^3/uL (1.80-8.00); NEUTROPHILS PERCENT AUTO 68.0 % (41-71); PLATELET COUNT,PLT 145 10^3/uL (150-400); RED BLOOD CELL COUNT 3.89 x10^6/uL (4.50-6.00); WHITE BLOOD CELL COUNT,WBC 8.4 10^3/uL (4.0-11.0)
[2025-04-06 08:11] LABS: ALANINE AMINOTRANSFERASE,ALT 17.0 U/L (12-78); ASPARTATE AMNIOTRANSFERASE,AST 13.0 U/L (15-37); BILIRUBIN TOTAL 0.4 mg/dL (0.0-1.0); BLOOD UREA NITROGEN,BUN 13.0 mg/dL (7-18); CARBON DIOXIDE,CO2 29.0 mmol/L (21-32); CHLORIDE,CL 109.0 mEq/L (98-106); CREATININE 0.9 mg/dL (0.7-1.3); EST CRCL DRUG DOSING (CG) 89.48 mL/min; GLUCOSE RANDOM 79.0 mg/dL (75-99); POTASSIUM,K 4.4 mEq/L (3.5-5.0); PROTEIN TOTAL,TP 5.9 g/dL (6.4-8.2); SODIUM,NA 145.0 mEq/L (136-145)
[2025-04-06 08:13] LABS: ESTIMATED GFR 96.0 mL/min (>=60)
[2025-04-06 10:15] VITALS: BP 145/91; PULSE 68
== END 2025-04-06 10:35 | disposition home or self-care (01) | DRG 871 ==
LOC: CC.ED 17:30 → UNDOADMOB 18:44 → CC.MS 18:44 → CC.ED 18:54 → INTOOBSV 04-05 09:40 → OBSVTOIN 04-05 09:40 → UNDODISIN 04-06 10:35
PROVIDERS: ADMIT Physician Assistant Medical; ATTEND Nurse Practitioner Family
DX: R50.9 Fever, unspecified (principal); A41.9 Sepsis, unspecified organism; J18.9 Pneumonia, unspecified organism; J30.2 Other seasonal allergic rhinitis; D72.829 Elevated white blood cell count, unspecified; I11.0 Hypertensive heart disease with heart failure; I50.9 Heart failure, unspecified; K21.9 Gastro-esophageal reflux disease without esophagitis; F79 Unspecified intellectual disabilities; E03.9 Hypothyroidism, unspecified; Z79.51 Long term (current) use of inhaled steroids; Z79.899 Other long term (current) drug therapy; Z79.890 Hormone replacement therapy
CPT/HCPCS: 36415; 71046; 80053; 81003; 83605; 85025; 86140; 87040; 87636; 96360; 96361; 96366; 99223; 99233; 99238; 99285; A9270-GY; G0378; J0696; J1650; J7030